=== PATIENT | male | born 1940 | race Two or more races ===

== ENCOUNTER 2016-11-04 12:20 | Outpatient (CLI) | payer MEDICARE, BC ==
[~2016-11-04 12:20] MED LIST: ATOR20TA PO; LEVO50TA8 PO; METO25TA6 PO; OMEP20TA68 PO
== END 2016-11-04 23:59 | disposition home health service (06) ==
LOC: WOU 12:20
PROVIDERS: ATTEND Surgery
DX: L59.8 Other specified disorders of the skin and subcutaneous tissue related to radiation (principal); Z85.89 Personal history of malignant neoplasm of other organs and systems; M87.38 Other secondary osteonecrosis, other site; I25.10 Atherosclerotic heart disease of native coronary artery without angina pectoris; I10 Essential (primary) hypertension; L98.494 Non-pressure chronic ulcer of skin of other sites with necrosis of bone; E78.5 Hyperlipidemia, unspecified; E03.9 Hypothyroidism, unspecified; Z68.24 Body mass index [BMI] 24.0-24.9, adult; E46 Unspecified protein-calorie malnutrition; Z85.831 Personal history of malignant neoplasm of soft tissue; Z79.899 Other long term (current) drug therapy; I48.2 Chronic atrial fibrillation; Z79.01 Long term (current) use of anticoagulants
CPT/HCPCS: 15271; A6207; A6402 ×2; Q4110

== ENCOUNTER 2016-11-11 11:30 | Outpatient (CLI) | payer MEDICARE, BC | END 2016-11-11 23:59 | disposition home health service (06) | LOC: WOU 11:30 | PROVIDERS: ATTEND Surgery | DX: L59.8 Other specified disorders of the skin and subcutaneous tissue related to radiation (principal); L98.494 Non-pressure chronic ulcer of skin of other sites with necrosis of bone; Z85.89 Personal history of malignant neoplasm of other organs and systems; I10 Essential (primary) hypertension; E78.5 Hyperlipidemia, unspecified; E03.9 Hypothyroidism, unspecified; Z85.831 Personal history of malignant neoplasm of soft tissue; Z79.899 Other long term (current) drug therapy | CPT/HCPCS: 11043; A6197; A6402 ==

== ENCOUNTER 2016-12-09 12:08 | Outpatient (CLI) | payer MEDICARE, BC | END 2016-12-09 23:59 | disposition home health service (06) | LOC: WOU 12:08 | PROVIDERS: ATTEND Surgery | DX: L59.8 Other specified disorders of the skin and subcutaneous tissue related to radiation (principal); L98.493 Non-pressure chronic ulcer of skin of other sites with necrosis of muscle; I48.91 Unspecified atrial fibrillation; Z79.01 Long term (current) use of anticoagulants; Z79.899 Other long term (current) drug therapy; E03.9 Hypothyroidism, unspecified; E78.5 Hyperlipidemia, unspecified; Z85.831 Personal history of malignant neoplasm of soft tissue | CPT/HCPCS: 11043; A6197; A6402 ==

== ENCOUNTER 2016-12-16 12:50 | Outpatient (CLI) | payer MEDICARE, BC | END 2016-12-16 23:59 | disposition home health service (06) | LOC: WOU 12:50 | PROVIDERS: ATTEND Surgery | DX: L59.8 Other specified disorders of the skin and subcutaneous tissue related to radiation (principal); L98.493 Non-pressure chronic ulcer of skin of other sites with necrosis of muscle; E46 Unspecified protein-calorie malnutrition; Z68.24 Body mass index [BMI] 24.0-24.9, adult; Z85.831 Personal history of malignant neoplasm of soft tissue; E03.9 Hypothyroidism, unspecified; E78.5 Hyperlipidemia, unspecified; I48.91 Unspecified atrial fibrillation; I25.10 Atherosclerotic heart disease of native coronary artery without angina pectoris; I10 Essential (primary) hypertension; Z79.01 Long term (current) use of anticoagulants; Z79.899 Other long term (current) drug therapy | CPT/HCPCS: 11043; 11046; A6197; A6402 ==

== ENCOUNTER 2016-12-23 12:08 | Outpatient (CLI) | payer MEDICARE, BC | END 2016-12-23 23:59 | disposition home health service (06) | DX: L59.8 Other specified disorders of the skin and subcutaneous tissue related to radiation (principal); L98.493 Non-pressure chronic ulcer of skin of other sites with necrosis of muscle; Z85.831 Personal history of malignant neoplasm of soft tissue; E03.9 Hypothyroidism, unspecified; E78.5 Hyperlipidemia, unspecified; E46 Unspecified protein-calorie malnutrition; Z68.24 Body mass index [BMI] 24.0-24.9, adult; I48.91 Unspecified atrial fibrillation; I25.10 Atherosclerotic heart disease of native coronary artery without angina pectoris; Z79.01 Long term (current) use of anticoagulants; Z79.84 Long term (current) use of oral hypoglycemic drugs | CPT/HCPCS: 11043; A6207; A6402 ==

== ENCOUNTER 2016-12-27 12:25 | Outpatient (CLI) | payer MEDICARE, BC | END 2016-12-27 23:59 | disposition home or self-care (01) | LOC: RAD 12:25 | PROVIDERS: ATTEND Surgery | DX: I51.7 Cardiomegaly (principal); J98.11 Atelectasis; M47.894 Other spondylosis, thoracic region; I70.0 Atherosclerosis of aorta | CPT/HCPCS: 71020-TC ==

== ENCOUNTER 2016-12-30 13:27 | Outpatient (CLI) | payer MEDICARE, BC | END 2016-12-30 23:59 | disposition home health service (06) | LOC: WOU 13:27 | PROVIDERS: ATTEND Surgery | DX: L59.8 Other specified disorders of the skin and subcutaneous tissue related to radiation (principal); L98.493 Non-pressure chronic ulcer of skin of other sites with necrosis of muscle; Z85.831 Personal history of malignant neoplasm of soft tissue; E03.9 Hypothyroidism, unspecified; E78.5 Hyperlipidemia, unspecified; E46 Unspecified protein-calorie malnutrition; Z68.24 Body mass index [BMI] 24.0-24.9, adult; I48.91 Unspecified atrial fibrillation; I25.10 Atherosclerotic heart disease of native coronary artery without angina pectoris; Z79.01 Long term (current) use of anticoagulants; Z79.84 Long term (current) use of oral hypoglycemic drugs | CPT/HCPCS: 11043; 11046; A6207; A6402 ==

== ENCOUNTER 2017-01-06 13:37 | Outpatient (CLI) | payer MEDICARE, BC | END 2017-01-06 23:59 | disposition home health service (06) | LOC: WOU 13:37 | PROVIDERS: ATTEND Surgery | DX: L59.8 Other specified disorders of the skin and subcutaneous tissue related to radiation (principal); L98.494 Non-pressure chronic ulcer of skin of other sites with necrosis of bone; Z85.831 Personal history of malignant neoplasm of soft tissue; E03.9 Hypothyroidism, unspecified; E78.5 Hyperlipidemia, unspecified; E46 Unspecified protein-calorie malnutrition; Z68.24 Body mass index [BMI] 24.0-24.9, adult; I48.91 Unspecified atrial fibrillation; I25.10 Atherosclerotic heart disease of native coronary artery without angina pectoris; Z79.01 Long term (current) use of anticoagulants | CPT/HCPCS: 11043; 71020-TC; A6253; A6402 ==

== ENCOUNTER 2017-02-10 14:26 | Outpatient (CLI) | payer MEDICARE, BC | END 2017-02-10 23:59 | disposition home health service (06) | LOC: WOU 14:26 | PROVIDERS: ATTEND Surgery | DX: L59.8 Other specified disorders of the skin and subcutaneous tissue related to radiation (principal); L98.493 Non-pressure chronic ulcer of skin of other sites with necrosis of muscle; Z85.831 Personal history of malignant neoplasm of soft tissue; E03.9 Hypothyroidism, unspecified; E78.5 Hyperlipidemia, unspecified; I48.91 Unspecified atrial fibrillation; I25.10 Atherosclerotic heart disease of native coronary artery without angina pectoris; Z79.01 Long term (current) use of anticoagulants; E43 Unspecified severe protein-calorie malnutrition; Z68.24 Body mass index [BMI] 24.0-24.9, adult; Z79.899 Other long term (current) drug therapy | CPT/HCPCS: 11043; A6253; A6402 ×3 ==

== ENCOUNTER 2017-02-17 13:10 | Outpatient (CLI) | payer MEDICARE, BC | END 2017-02-17 23:59 | disposition home health service (06) | LOC: WOU 13:10 | PROVIDERS: ATTEND Surgery | DX: L59.8 Other specified disorders of the skin and subcutaneous tissue related to radiation (principal); L98.493 Non-pressure chronic ulcer of skin of other sites with necrosis of muscle; Z85.831 Personal history of malignant neoplasm of soft tissue; E03.9 Hypothyroidism, unspecified; E78.5 Hyperlipidemia, unspecified; I48.91 Unspecified atrial fibrillation; I25.10 Atherosclerotic heart disease of native coronary artery without angina pectoris; Z79.01 Long term (current) use of anticoagulants; E43 Unspecified severe protein-calorie malnutrition; Z68.24 Body mass index [BMI] 24.0-24.9, adult; Z79.899 Other long term (current) drug therapy; L02.213 Cutaneous abscess of chest wall | CPT/HCPCS: 11043; A6207; A6253; A6402 ==